=== PATIENT | male | born 1995 | race Caucasian/White ===

== ENCOUNTER 2021-07-17 10:30 | Emergency (ER) | payer OTHER, SELFPAY ==
[2021-07-17 11:34] VITALS: BP 121/73; PULSE 82; RESP 19; TEMP 37; O2SAT 97; BMI 24.3
[2021-07-17 11:41] VITALS: BP 121/73; PULSE 82; RESP 19; TEMP 37
--- NOTE | 2021-07-17 11:42 | HMH.EDUTC ---
[facility] Disposition Clinical Impression: Viral syndrome, Exposure to COVID-19 virus Disposition: Home, Self-Care Condition on Discharge: Good Instructions: DI for COVID-19 (Suspected or Confirmed ), Preventing the Spread of Coronavirus Discharge Instructions Additional Instructions: Drink plenty of fluids. Take tylenol or ibuprofen for pain or fever. Take the medications as directed. Follow up with your regular doctor. GO TO THE ER FOR ANY WORSENING SYMPTOMS Quarantine until you know the results of your covid-19 test. If it is positive, the health department should call you and give you further instructions about your length of Quarantine and other things. Notify your school or workplace of your results and follow their instructions regarding return to work/school. Prescriptions: Brompheniramine/Pseudoephed/Dm [Bromfed Dm Cough Syrup] 5 ml PO Q6HP PRN #240 ml PRN Reason: Cough Transmission Status: Received by [id number] Ondansetron [Zofran 4mg ODT] 4 mg PO DAILYP PRN #12 tab PRN Reason: Nausea Transmission Status: Received by [id number] Referrals: Lang Sorto [Primary Care Provider] - Forms: Work/School Release Time of Disposition: 11:47 Medical Decision Making - Medical Records Medical records reviewed: No: I reviewed the patient's medical records. - Lucien Inquiry Pt receiving controlled substance: No Vital Signs: 07/17/21 11:34 07/17/21 11:41 Temperature 98.6 F 98.6 F Temperature Source Oral Pulse Rate 82 Pulse Rate [Left] 82 Respiratory Rate 19 19 Blood Pressure 121/73 Blood Pressure [Right Arm] 121/73 Blood Pressure Mean [Right Arm] 89 02 Sat by Pulse Oximetry 97 Oxygen Delivery Method Room Air - Lab Data Lab results reviewed: Yes: I reviewed the patient's lab results. Lab Results 07/17/21 11:45: Strep Scn Rapid Clinic Negative Orders (Tests/Meds): ORDERS Category Date Time Status Strep Screen Confirmation Stat Micro 07/17/21 11:45 Received [facility] HPI - General Stated complaint: covid test Time Seen by Provider: 07/17/21 11:42 Mode of Arrival: Ambulatory Source of Information: Patient Limitations: No Limitations Description of Symptoms (Recalled from Triage Doc. by RN): pt c/o cough, sore throat, COTTRELL, loss of taste/smell, fatigue and weakness since sat. HEENT Symptoms (Recalled from RN notes): Yes (sore throat, COTTRELL, loss of taste/smell) Resp Symptoms (Recalled from RN notes): Yes (cough) Skin Symptoms (Recalled from RN notes): No MS Symptoms (Recalled from RN notes): No Functional Status (Recalled from RN notes): weakness and fatigue - History of Present Illness Provider Complaint: He states that for the past 2 days he has had a scratchy sore throat, fatigue, dry cough and he has felt bad. 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 - Related Data Previous Rx's Medication Instructions Recorded Brompheniramine/Pseudoephed/Dm 5 ml PO Q6HP PRN #240 ml 07/17/21 [Bromfed Dm Cough Syrup] Ondansetron [Zofran 4mg ODT] 4 mg PO DAILYP PRN #12 tab 07/17/21 - Worker's Comp Is this a Worker's Comp case?: No [facility] History - Hepatitis A Screen Drug use history?: No High risk sexual behaviors?: No History of sexually transmitted infection?: No Currently employed?: No Childcare worker?: No Do you have indoor plumbing?: Yes Do you have electricity?: Yes Attestation statement:: This patient has been screened for Hepatitis A risk factors. I have reviewed the patient's past medical history: Yes ROS Obtained: Yes All systems reviewed & no additional complaints - Constitutional Constitutional: Reports as per HPI - Eyes Eyes: Denies eye discharge - ENT Ears, Nose, Mouth, and Throat: Reports as per HPI - Cardiovascular Cardiovascular: Denies chest pain - Respiratory Respiratory: Denies chest congestion, Reports coug
[2021-07-17 11:46] LABS: UTC Strep Screen (Rapid) Negative (Negative)
== END 2021-07-17 12:06 | disposition home or self-care (01) ==
PROVIDERS: Emergency Provider Nurse Practitioner Family; PCP Family Medicine
DX: B34.9 Viral infection, unspecified (principal); Z20.822 Contact with and (suspected) exposure to COVID-19
CPT/HCPCS: 87880; 99202; G0463; U0003

== ENCOUNTER 2023-09-22 18:21 | Emergency (ER) | payer MEDICAID, SELFPAY ==
[2023-09-22 18:23] VITALS: BP 133/81; PULSE 106; RESP 20; TEMP 37.2; O2SAT 99; BMI 26.4
--- NOTE | 2023-09-22 19:00 | CT_ITS ---
PROCEDURE INFORMATION: Exam: CT Neck With Contrast Exam date and time: 09/22/2023 7:30 PM Age: 28 years old Clinical indication: Throat pain; Additional info: Severe throat pain, worse with extension TECHNIQUE: Imaging protocol: Computed tomography of the neck with contrast. Radiation optimization: All CT scans at this facility use at least one of these dose optimization techniques: automated exposure control; mA and/or kV adjustment per patient size (includes targeted exams where dose is matched to clinical indication); or iterative reconstruction. Contrast material: ISOVUE 370; Contrast volume: 75 ml; Contrast route: IV; REPORTING DATA: Count of CT and Cardiac NM exams in prior 12 months: This patient has received 0 known CTs and 0 known cardiac nuclear medicine studies in the 12 months prior to the current study. COMPARISON: No relevant prior studies available. FINDINGS: Brain: The visualized intracranial structures are within range of normal. Orbital cavities: The orbits are normal. Mastoid air cells: The mastoid sinuses are normal. Paranasal sinuses: The visualized portions of the sinuses are clear. Pharynx: No significant tonsillar enlargement. Larynx: The epiglottis and aryepiglottic folds appear preserved. Prevertebral and retropharyngeal spaces: The prevertebral soft tissues are within range of normal. No retropharyngeal fluid collections to indicate abscess. Salivary glands: The visualized parotid and submandibular glands are preserved. Thyroid: The visualized thyroid gland is normal. Lymph nodes: There are a few scattered cervical lymph nodes bilaterally, not of pathologic significance by size criteria. A right pre vascular lymph node measures 10 mm in short axis. Trachea: The airway appears patent. Lungs: Calcified granuloma in the right upper lobe is present. Large calcified granuloma or hamartoma in the posterior right upper lobe measuring 9.4 mm is present. The lung apices are otherwise clear. Esophagus: Apparent mild esophageal wall thickening involving the visualized portions of the cervical esophagus could be on the basis of incomplete distension, but cannot exclude mild esophagitis. Bones/joints: Alignment is intact from skull base to T1. The atlantooccipital articulations are preserved. The facet joints are appropriately aligned. The predental interval appears normal. There is no evidence of acute fracture. Soft tissues: No significant soft tissue edema. IMPRESSION: 1. Apparent mild esophageal wall thickening involving the visualized portions of the cervical esophagus could be on the basis of incomplete distension, but cannot exclude mild esophagitis in the appropriate clinical setting.. 2. Evidence of prior granulomatous disease. 3. Otherwise, negative exam.
--- NOTE | 2023-09-22 19:01 | HMH.EDGENADL ---
Discharge Plan Disposition Chief Complaint: Upper Respiratory Infection Prescriptions Prescriptions: No Action [id number] 118 ML syrup 5 ml PO Q6HP PRN (Reason: Cough) Qty: 240 0RF ondansetron 4 MG tablet,disintegrating 4 mg PO DAILYP PRN (Reason: Nausea) Qty: 12 0RF Referrals Follow up/Referrals: Lang Sorto [Primary Care Provider] - See instructions Ricardo Colon MD [Staff Physician] - See instructions Activity Restrictions/Add. Instructions Additional Instructions/Restrictions: At this time it was felt you are safe to be discharged home. If new or worsening symptoms please do not hesitate to return the emergency department. Please call and schedule an appointment with Dr. Colon as you are able. Clinical Impressions Clinical Impression: Sore throat, Odynophagia, Esophageal thickening Discharge ED Provider: Osiel Umaña General Adult HPI General Chief complaint: Upper Respiratory Infection Stated complaint: soa, difficulty swalling, throat swelling Time Seen by Provider: 09/22/23 18:40 Mode of Arrival: Ambulatory Source of Information: Patient and Parent(s) Limitations: No Limitations Description of Symptoms (Recalled from ER Triage Doc. by RN): pt has been having a sore throat for 3 weeks and it is very painful to swallow, pt had T&A done years ago, pt took 400 mg motrin 1800 tonight History of Present Illness HPI narrative: Patient is a 28-year-old male with no chronic past medical history who presents emergency department for evaluation of subacute throat pain. History is obtained by patient at bedside. For the last 3 weeks patient has had worsening throat pain with some resolution in the middle however over the last 7 days has become particularly bad with odynophagia, pain worse with extension of his neck. No difficulty breathing. He has previous tonsillectomy and adenoidectomy. He does feel a popping in his left ear intermittently. Due to persistent symptoms he presents here for continued evaluation. No other acute complaints at this time. Related Data Previous Rx's Medication Instructions Recorded [id number] 5 ml PO Q6HP PRN Cough #240 mL 07/17/21 2 mg-30 mg-10 mg/5 mL oral syrup ondansetron 4 mg disintegrating 4 mg PO DAILYP PRN Nausea #12 tabs 07/17/21 tablet Allergies Allergy/AdvReac Type Severity Reaction Status Date / Time No Known Allergies Allergy Verified 09/22/23 19:15 [facility] Disclaimer: The information contained in this section may have been updated after the patient was seen, as this information can be updated by other users. Social History Smoking Status: Never smoker alcohol intake: never current occupational status: other Travel in the last 8 weeks: None ROS Obtained: Yes Systems reviewed as appropriate & no additional complaints except as documented Physical Exam General General appearance: alert, in no apparent distress and other (Off pitch phonation.) Head Head exam: atraumatic and normocephalic Eye Eye exam: Present PERRL and EOMI ENT ENT exam: Present normal oropharynx (Erythematous oropharynx without purulence), mucous membranes moist and other (Serous effusion on the left) Neck Neck exam: Present normal inspection and other (Able to range 45 degrees laterally in both directions. Pain with extension.) Chest Chest inspection: Present normal inspection and symmetric chest wall rise Respiratory Respiratory exam: Present normal lung sounds bilaterally; Absent respiratory distress Cardiovascular Cardiovascular exam: Present regular rate and normal rhythm Abdominal Exam Abdominal exam: Present soft; Absent tenderness Extremities Exam Extremities exam: Present normal inspection Neurological Exam Neurological exam: Present alert; Absent motor sensory deficit Psychiatric Psychiatric exam: Present normal affect Skin Skin exam: Present warm and dry Medical Decision Making Lucien Inquiry Pt
[2023-09-22 19:25] LABS: Coronavirus 19, PCR Not Detected (NotDetected); Influenza A, PCR Not Detected (NotDetected); Influenza B, PCR Not Detected (NotDetected)
[2023-09-22 19:34] LABS: Basophils # 0.1 K/mm3 (0-0.2); Basophils % 0.3 % (0.1-2.0); Eosinophils # 0.5 K/mm3 (0.0-0.4); Eosinophils % 2.8 % (0.1-12.0); Hematocrit 45.7 % (42.0-52.0); Lymphocytes # 2.3 K/mm3 (0.7-4.5); Lymphocytes % 14.5 % (10-50); Mean Corpuscular HGB Conc 34.9 g/dL (31.8-35.4); Mean Corpuscular Hemoglobin 30.7 pg (27.0-31.2); Mean Corpuscular Volume 87.8 fl (80-94); Mean Platelet Volume 8.3 fl (7.4-10.4); Monocytes # 0.6 K/mm3 (0.1-1.0); Monocytes % 3.4 % (1.7-9.3); Neutrophils # 12.7 K/mm3 (1.8-7.8); Neutrophils % 78.8 % (37.0-80.0); Platelet Count 266 K/mm3 (142-424); Red Cell Distribution Width 13.2 % (11.5-17.5); White Blood Count 16.1 K/mm3 (4.8-10.8)
[2023-09-22 19:35] LABS: MANUAL DIFFERENTIAL MANUAL DIFFERENTIAL (MANUAL DIFF); Strep Scrn Group A (Rapid) Negative (Negative)
[2023-09-22 19:38] LABS: Chloride 101 mmol/L (98-107); Potassium 3.7 mmoL/L (3.5-5.1); Sodium 139 mmol/L (136-145)
[2023-09-22 19:40] LABS: Alanine Aminotransferase 44 U/L (12-78); Alkaline Phosphatase 86 U/L (38-126); Aspartate Amino Transferase 49 U/L (17-59); Bilirubin,Total 0.2 mg/dl (0.2-1.3); Blood Urea Nitrogen 16 mg/dl (9-20); Creatinine Clearance Estimated 132 mL/min (50-200); Estimated Glomerular Filt Rate 90 ml/min (>60); GFR (African American) 109 ML/MIN (>60)
[2023-09-22 19:41] LABS: Albumin Level 5.1 g/dl (3.5-5.0); Albumin/Globulin Ratio 1.5 (1.1-1.8); Anion Gap 12.7 mEq/L (5-15); Calcium 9.2 mg/dl (8.4-10.2); Carbon Dioxide 29 mmol/L (22.0-30.0); Globulin 3.3 g/dL (1.3-3.2); Glucose 102 mg/dl (74-100); Total Protein,Serum 8.4 g/dl (6.3-8.2)
[2023-09-22 19:52] LABS: C-Reactive Protein 8.5 mg/L (0-4)
[2023-09-22 20:58] LABS: Eosinophils % 1 % (0-3); Lymphocytes % 20 % (10-50); Monocytes % 6 % (2-9); Neutrophils % 73 % (42-76); Platelet Estimate Normal; RBC Morphology Normal; Total Cells Counted 100
[2023-09-22 21:22] VITALS: BP 119/75; PULSE 88; RESP 20; TEMP 36.7; O2SAT 97
--- NOTE | 2023-09-27 15:27 | PC.NURSE ---
attempted to call pt for f/u check r/t strep culture confirmation, no answer with either number on pts chart, no voicemail available.
--- NOTE | 2023-09-27 16:20 | PC.NURSE ---
lab call with preliminary blood culture results for pt. Notified Dr. Espinoza, states no action needed yet.
--- NOTE | 2023-09-29 10:06 | PC.NURSE ---
contacted pt due to blood culture results with gram positive rods, pt states that he is feeling better, his throat is a little scratchy still but better. MD Reis aware, no further action.
== END 2023-09-22 21:23 | disposition home or self-care (01) ==
PROVIDERS: Emergency Provider Emergency Medicine; PCP Family Medicine
DX: R07.0 Pain in throat (principal); R13.10 Dysphagia, unspecified
CPT/HCPCS: 70491; 80053; 85007; 85025; 86140; 87040; 87430; 87636; 96360; 96361; 96374; 96375; 99285; J0131; Q9967